=== PATIENT | female | born 1995 | race Caucasian/White ===

== ENCOUNTER → 2017-07-18 | Outpatient (CLI) | payer BC | END | disposition home or self-care (01) | LOC: LABWHC1 15:07 | PROVIDERS: ATTEND Obstetrics & Gynecology | DX: N91.2 Amenorrhea, unspecified (principal) | CPT/HCPCS: 36415; 84702 ==

== ENCOUNTER 2017-10-18 06:15 | Emergency (ER) | payer BC ==
[2017-10-18 06:26] VITALS: RESP 16; TEMP 98.4
--- NOTE | 2017-10-18 07:14 | ED ---
Chest Pain HPI - General Chief Complaint: Chest Pain Stated Complaint: Chest Pain Time Seen by Provider: 10/18/17 07:00 Source: patient, RN notes reviewed Mode of arrival: ambulatory Limitations: no limitations - History of Present Illness Initial Comments: 22-year-old female presents emergency Department chief complaint of chest discomfort palpitations. Patient states she has a history of this last 2 years. Patient states that it is happening more frequently and recently be secondary to increase stress and anxiety related to custody [place] on work. Patient states she's had a complete workup with a primary cardiology for her heart. She's had echo EKGs and Holter monitor. Patient had no acute finding told is not her heart. Disorders anxiety. She has taken from the Xanax in the past which is help. She was given Ativan that did not help. Denies any associated symptoms denies any shortness of breath no pleuritic chest pain. Patient denies any chance . Patient states she took a nap here prior to being seen and feels better. - Related Data Previous Rx's Medication Instructions Recorded LORazepam [Ativan] 1 mg PO HS PRN #30 tab 10/21/16 ALPRAZolam [Xanax] 0.5 mg PO BID PRN #14 tablet 10/18/17 Allergies Allergy/AdvReac Type Severity Reaction Status Date / Time No Known Allergies Allergy Verified 10/21/16 05:10 Review of Systems ROS Statement: Those systems with pertinent positive or pertinent negative responses have been documented in the HPI. ROS Other: All systems not noted in ROS Statement are negative. EKG Findings - EKG Comments: EKG Findings:: EKG performed at 6:39 sinus rhythm with a rate of 71 AR 108 QRS 90 QT/QTc 384/417 Past Medical History Additional Past Medical History / Comment(s): freqent uti's, angina History of Any Multi-Drug Resistant Organisms: None Reported Past Surgical History: Tonsillectomy Past Psychological History: Anxiety, Bipolar Smoking Status: Never smoker Past Alcohol Use History: Occasional Past Drug Use History: None Reported, Marijuana General Exam Limitations: no limitations General appearance: alert, in no apparent distress Head exam: Present: atraumatic, normocephalic, normal inspection Eye exam: Present: normal appearance, PERRL, EOMI. Absent: scleral icterus, conjunctival injection, periorbital swelling ENT exam: Present: normal exam, normal oropharynx, mucous membranes moist, TM's normal bilaterally, normal external ear exam Neck exam: Present: normal inspection, full ROM. Absent: tenderness, meningismus, lymphadenopathy Respiratory exam: Present: normal lung sounds bilaterally. Absent: respiratory distress, wheezes, rales, rhonchi, stridor Cardiovascular Exam: Present: regular rate, normal rhythm, normal heart sounds. Absent: systolic murmur, diastolic murmur, rubs, gallop, clicks GI/Abdominal exam: Present: soft, normal bowel sounds. Absent: distended, tenderness, guarding, rebound, rigid Course Vital Signs 10/18/17 10/18/17 06:22 06:44 Temperature 98.4 F Pulse Rate 72 Pulse Rate [ 67 Shower Room Attendant ] Respiratory 16 Rate Blood Pressure 120/67 O2 Sat by Pulse 99 Oximetry Chest Pain MDM - MDM 22-year-old female presented to the emergency Department chief complaint of chest pain, palpitations anxiety. Patient felt better prior to being seen after sleeping in the room. Patient has increased stress and anxiety issues. Patient be given short course he Xanax. She is to schedule appointment with her primary care physician and return for any worsening symptoms. Disposition Clinical Impression: Atypical chest pain, Stress, Anxiety Disposition: HOME SELF-CARE Condition: Stable Instructions: Chest Pain (ED) Additional Instructions: Please return to the Emergency Department if symptoms worsen or any other concerns. Prescriptions: ALPRAZolam [Xanax] 0.5 mg PO BID PRN #14 tablet PRN Reason: Anxiety Referrals: Cecil Antonio DO [Primary Care Provider] - 1-2 days Time of Disposition: 07:14
[2017-10-18 07:40] VITALS: BP 140/87; PULSE 75
== END 2017-10-18 07:39 | disposition home or self-care (01) ==
LOC: EC 06:15
DX: F41.9 Anxiety disorder, unspecified (principal); R07.89 Other chest pain; F43.9 Reaction to severe stress, unspecified
CPT/HCPCS: 93005; 99284

== ENCOUNTER → 2020-06-19 | Outpatient (CLI) | payer OTHER ==
[2020-06-19 17:11] LABS: HCT 37.3 % (34.0-46.0); HGB 13.4 gm/dL (11.4-16.0); MCHC 35.8 g/dL (31.0-37.0); MCV 89.4 fL (80.0-100.0); Mean Platelet Volume 8.3; Platelet Count 192 k/uL (150-450); RBC 4.17 m/uL (3.80-5.40); RDW 11.6 % (11.5-15.5); WBC 11.6 k/uL (3.8-10.6)
[2020-06-19 17:27] LABS: African American GFR (CKD) >90 (>60 ml/min/1.73 sqM); Glucose 109 mg/dL (74-99); Non-African American GFR(CKD) >90 (>60 ml/min/1.73 sqM)
[2020-06-20 04:44] LABS: Hepatitis B Surface Antigen Non-Reactive (Non-Reactive)
[2020-06-20 08:01] LABS: HIV 2 AB Non-Reactive (Non-Reactive); HIV AB P24 Non-Reactive (Non-Reactive); HIV P24 AG Non-Reactive (Non-Reactive)
--- NOTE | 2020-06-21 19:50 | US ---
EXAMINATION TYPE: US OB <= 14 wk twins DATE OF EXAM: 06/19/2020 COMPARISON: NONE CLINICAL HISTORY: 25-year-old female [id number] CONFIRM DATES. EXAM PERFORMED: Transabdominal (TA) FINDINGS: EXAM MEASUREMENTS: GESTATIONAL AGE / DATING Physician Established: (6 weeks/6 days) EDC: 02/06/2021 Dates by LMP: (6 weeks/6 days) EDC: 02/06/2021 Dates by First Scan: This is 1st scan Dates by Current Scan for Baby A: (6 weeks/5 days) EDC: 02/07/2021 Dates by Current Scan for Baby B: (6 weeks/6 days) EDC: 02/06/2021 MATERNAL ANATOMY Uterus: 10.3 x 4.2 x 6.3cm Right Ovary: 5.6 x 4.0 x 3.7cm with 4.7 x 3.2 x 3.1cm cyst. This cyst contains a mural based echogeni c material measuring 2.4 x 0.9 cm. Left Ovary: 2.5 x 1.5 x 1.4cm Post CDS / Adnexa: wnl Presence of free fluid: no Presence of corpus luteal cyst: not seen Presence of subchorionic bleed: no Presence of two separate gestational sacs: yes GESTATION / SURVEY TWIN A CRL: 0.8cm (6 wks/5 days) Yolk Sac (normal less than 6mm): 3.8mm Heart Rate: 132 bpm Rhythm: Normal IUP: Viable IUP TWIN B CRL: 0.8cm (6 wks/6 days) Yolk Sac (normal less than 6mm): 3.2mm Heart Rate: 144 bpm Rhythm: Normal IUP: Viable IUP Twin peak sign is demonstrated. Date of LMP: 05/02/2020 Beta HcG (if available): Not available at time of exam [employer] Sales[employer] notes: Viable twin IUP IMPRESSION: 1. Twin live intrauterine pregnancies with estimated gestational age of 6 weeks 6 days by LMP. Curren t ultrasound biometry is concordant (twin A at 6 weeks 5 days and twin B at 6 weeks 6 days). 2. 2 yolk sacs and twin peak sign suggests a diamnionic dichorionic twin gestation. 3. A large 4.7 cm cyst within the right ovary contains a 2.4 cm mural based nodule. Possible hemorrha gic cyst with retractile clot. Reassess in 6-8 weeks to ensure involution. 4. Complete survey recommended at 18-20 weeks.
[2020-06-22 05:13] LABS: Toxoplasma Antibody (IgG) <3.0 IU/mL (<7.2); Toxoplasma Antibody (IgM) 3.7 AU/mL (<8.0)
== END | disposition home or self-care (01) ==
LOC: RADUSWWP 15:41
PROVIDERS: ATTEND Obstetrics & Gynecology
DX: Z36.9 Encounter for antenatal screening, unspecified (principal); Z3A.01 Less than 8 weeks gestation of pregnancy; N83.201 Unspecified ovarian cyst, right side; Z34.81 Encounter for supervision of other normal pregnancy, first trimester
CPT/HCPCS: 76801; 76802; 82565; 82947; 85027; 86762; 86777; 86778; 86780; 86900; 86901; 87340; 87390

== ENCOUNTER 2020-07-18 12:25 | Emergency (ER) | payer OTHER ==
[2020-07-18] MEDS ORDERED: diphenhydrAMINE 50 MG/ML 1 ML VIAL IVP STA (12:37)
[2020-07-18] MEDS ORDERED: METOCLOPRAMIDE 5 MG/ML 2 ML VIAL IVP STA (12:37)
[2020-07-18] MEDS ORDERED: SODIUM CHLORIDE 0.9% 2,000 ML IV STA (12:37)
[2020-07-18 12:55] LABS: Basophils # (A) 0.1 k/uL (0-0.2); Basophils % (A) 1 %; Eosinophils # (A) 0.2 k/uL (0-0.7); Eosinophils % (A) 1 %; HCT 37.7 % (34.0-46.0); HGB 13.3 gm/dL (11.4-16.0); Lymphocytes # (A) 1.6 k/uL (1.0-4.8); Lymphocytes % (A) 12 %; MCH 31.2 pg (25.0-35.0); MCHC 35.3 g/dL (31.0-37.0); MCV 88.6 fL (80.0-100.0); Monocytes # (A) 0.4 k/uL (0-1.0); Monocytes % (A) 3 %; Neutrophils # (A) 11.1 k/uL (1.3-7.7); Neutrophils % (A) 83 %; Platelet Count 160 k/uL (150-450); RBC 4.25 m/uL (3.80-5.40); RDW 11.8 % (11.5-15.5); WBC 13.3 k/uL (3.8-10.6)
[2020-07-18 13:03] LABS: ALT 28 U/L (4-34); AST 33 U/L (14-36); African American GFR (CKD) >90 (>60 ml/min/1.73 sqM); Albumin 3.8 g/dL (3.5-5.0); Alkaline Phosphatase 48 U/L (38-126); Anion Gap 6 mmol/L; Blood Urea Nitrogen 6 mg/dL (7-17); Calcium 8.9 mg/dL (8.4-10.2); Carbon Dioxide 23 mmol/L (22-30); Chloride 104 mmol/L (98-107); Glucose 102 mg/dL (74-99); Lipase 33 U/L (23-300); Magnesium 1.8 mg/dL (1.6-2.3); Non-African American GFR(CKD) >90 (>60 ml/min/1.73 sqM); Sodium 133 mmol/L (137-145); Total Bilirubin 0.3 mg/dL (0.2-1.3); Total Protein 6.6 g/dL (6.3-8.2)
--- NOTE | 2020-07-18 13:16 | ED ---
Nausea/Vomiting/Diarrhea HPI - General Chief complaint: Nausea/Vomiting/Diarrhea Stated complaint: 11 wks - Vomiting Time Seen by Provider: 07/18/20 12:31 Source: patient, RN notes reviewed Mode of arrival: ambulatory Limitations: no limitations - History of Present Illness Initial comments: 25-year-old female presents emergency Department chief complaint of nausea and vomiting in . Patient states that she struggle with nausea vomiting and her first and she is 11 weeks with twin gestation. Patient states that she's been suffering with states that she feels dehydrated. Patient is on no medications currently. Patient's SHRUB PLANTER is Dr. Hendrickson. Denies any vaginal bleeding or vaginal discharge no significant abdominal pain. Patient denies any fevers chills cough congestion. - Related Data Previous Rx's Medication Instructions Recorded LORazepam [Ativan] 1 mg PO HS PRN #30 tab 10/21/16 ALPRAZolam [Xanax] 0.5 mg PO BID PRN #14 tablet 10/18/17 Allergies Allergy/AdvReac Type Severity Reaction Status Date / Time No Known Allergies Allergy Verified 07/18/20 12:26 Review of Systems ROS Statement: Those systems with pertinent positive or pertinent negative responses have been documented in the HPI. ROS Other: All systems not noted in ROS Statement are negative. Past Medical History Additional Past Medical History / Comment(s): freqent uti's, angina History of Any Multi-Drug Resistant Organisms: None Reported Past Surgical History: Tonsillectomy Past Psychological History: Anxiety, Bipolar Smoking Status: Never smoker Past Alcohol Use History: None Reported Past Drug Use History: Marijuana General Exam Limitations: no limitations General appearance: alert, in no apparent distress Head exam: Present: atraumatic, normocephalic, normal inspection Eye exam: Present: normal appearance, PERRL, EOMI. Absent: scleral icterus, conjunctival injection, periorbital swelling ENT exam: Present: normal exam, mucous membranes moist Neck exam: Present: normal inspection, full ROM. Absent: tenderness, meningismus, lymphadenopathy Respiratory exam: Present: normal lung sounds bilaterally. Absent: respiratory distress, wheezes, rales, rhonchi, stridor Cardiovascular Exam: Present: regular rate, normal rhythm, normal heart sounds. Absent: systolic murmur, diastolic murmur, rubs, gallop, clicks GI/Abdominal exam: Present: soft, normal bowel sounds. Absent: distended, tenderness, guarding, rebound, rigid Back exam: Absent: CVA tenderness (R), CVA tenderness (L) Course Vital Signs 07/18/20 12:26 Temperature 98 F Pulse Rate 82 Respiratory 18 Rate Blood Pressure 130/82 O2 Sat by Pulse 98 Oximetry - Reevaluation(s) Reevaluation #1: 07/18/20 13:38 patient updated on results patient feels improved at this time Medical Decision Making - Medical Decision Making 25-year-old presented for nausea vomiting patient was well hydrated, given antiemetics feels greatly improved. No major signs of dehydration left lites within normal limits. Patient has no abdominal complaints other than nausea. Patient discharged in stable condition with close follow-up with [employer]ANTER return parameters were discussed - Lab Data Result diagrams: 07/18/20 12:47 07/18/20 12:47 Lab Results 07/18/20 07/18/20 07/18/20 Range/Units 12:47 12:47 13:11 WBC 13.3 H (3.8-10.6) k/uL RBC 4.25 (3.80-5.40) m/uL Hgb 13.3 (11.4-16.0) gm/dL Hct 37.7 (34.0-46.0) % MCV 88.6 (80.0-100.0) fL MCH 31.2 (25.0-35.0) pg MCHC 35.3 (31.0-37.0) g/dL RDW 11.8 (11.5-15.5) % Plt Count 160 (150-450) k/uL MPV 8.0 Neutrophils % 83 % Lymphocytes % 12 % Monocytes % 3 % Eosinophils % 1 % Basophils % 1 % Neutrophils # 11.1 H (1.3-7.7) k/uL Lymphocytes # 1.6 (1.0-4.8) k/uL Monocytes # 0.4 (0-1.0) k/uL Eosinophils # 0.2 (0-0.7) k/uL Basophils # 0.1 (0-0.2) k/uL Sodium 133 L (137-145) mmol/L Potassium 4.0 (3.5-5.1) mmol/L Chloride 104 (98-107) mmol/L Carbon Dioxide 23 (22-30) mmol/L Anion Gap 6 mmol/L BUN 6 L (7-17) mg/dL Creatinine 0.47 L (0.52-1.04) mg/dL Est GFR (CKD-EPI)AfAm >90 (>60 ml/min/1.73 sqM) Est GFR (CKD-EPI)NonAf >90 (>60 ml/min/1.73 sqM) Glucose 102 H (74-99) mg/dL Calcium 8.9 (8.4-10.2) mg/dL Magnesium 1.8 (1.6-2.3) mg/dL Total Bilirubin 0.3 (0.2-1.3) mg/dL AST 33 (14-36) U/L ALT 28 (4-34) U/L Alkaline Phosphatase 48 (38-126) U/L Total Protein 6.6 (6.3-8.2) g/dL Albumin 3.8 (3.5-5.0) g/dL Lipase 33 (23-300) U/L Urine Color Yellow Urine Appearance Cloudy H (Clear) Urine pH 7.0 (5.0-8.0) Ur Specific Yeso 1.022 (1.001-1.035) Urine Protein Negative (Negative) Urine Glucose (UA) Negative (Negative) Urine Ketones Negative (Negative) Urine Blood Negative (Negative) Urine Nitrite Negative (Negative) Urine Bilirubin Negative (Negative) Urine Urobilinogen <2.0 (<2.0) mg/dL Ur Leukocyte Esterase Negative (Negative) Urine RBC 2 (0-5) /hpf Urine WBC 4 (0-5) /hpf Ur Squamous Epith Cells 8 H (0-4) /hpf Urine Mucus Rare H (None) /hpf Disposition Clinical Impression: Nausea/vomiting in Disposition: HOME SELF-CARE Condition: Stable Instructions (If sedation given, give patient instructions): Nausea and Vomiting in (ED) Additional Instructions: Please return to the Emergency Department if symptoms worsen or any other concerns. Is patient prescribed a controlled substance at d/c from ED?: No Referrals: Cecil Antonio DO [Primary Care Provider] - 1-2 days Time of Disposition: 13:40
[2020-07-18 13:31] LABS: Appearance,Urine Cloudy (Clear); Bilirubin,Urine Negative (Negative); Blood,Urine Negative (Negative); Color,Urine Yellow; Glucose,Urine (UA) Negative (Negative); Ketones,Urine Negative (Negative); Leukocyte Esterase,Urine Negative (Negative); Mucus,Urine Rare /hpf; Nitrite,Urine Negative (Negative); Protein,Urine Negative (Negative); RBC,Urine 2 /hpf (0-5); Specific Gravity,Urine 1.022 (1.001-1.035); Squamous Epithelial Cell,Urine 8 /hpf (0-4); Urobilinogen,Urine <2.0 mg/dL (<2.0); WBC,Urine 4 /hpf (0-5)
[2020-07-18 13:57] VITALS: BP 120/60; PULSE 78; RESP 16; TEMP 98.3
== END 2020-07-18 14:10 | disposition home or self-care (01) ==
LOC: EC 12:25
DX: O21.0 Mild hyperemesis gravidarum (principal); Z3A.11 11 weeks gestation of pregnancy
CPT/HCPCS: 36415; 80053; 83690; 83735; 85025; 81001; 99284; 96374; 96375; 96361; J1200; J2765

== ENCOUNTER 2020-11-30 22:00 | Outpatient (CLI) | payer OTHER ==
[2020-11-30 22:35] LABS: Appearance,Urine Turbid (Clear); Bacteria,Urine Moderate /hpf; Bilirubin,Urine Negative (Negative); Blood,Urine Moderate (Negative); Calcium Oxalate Crystals,Urine Occasional /hpf; Color,Urine Yellow; Glucose,Urine (UA) Negative (Negative); Ketones,Urine Negative (Negative); Leukocyte Esterase,Urine Large (Negative); Mucus,Urine Few /hpf; Nitrite,Urine Positive (Negative); Protein,Urine 2+ (Negative); RBC,Urine 30 /hpf (0-5); Squamous Epithelial Cell,Urine 26 /hpf (0-4); Urobilinogen,Urine <2.0 mg/dL (<2.0); WBC,Urine >182 /hpf (0-5)
[2020-11-30 23:22] VITALS: BP 126/64; PULSE 93; RESP 16; TEMP 98.9
--- NOTE | 2020-12-17 11:26 | P.MSEPDOC ---
Presenting Problems - Arrival Data Date of Arrival on Unit: 11/30/20 Time of Arrival on Unit: 22:00 Mode of Transport: Ambulatory - Complaint OB-Reason for Admission/Chief Complaint: Elevated Blood Pressure, Signs/Symptoms UTI Comment: pt had checked blood pressure at home and thought it was elevated Medical History - Information : 2 Para: 1 Term: 1 : 0 Abortions: Spontaneous or Elective: 0 Number of Living Children: 1 - Gestational Age Gestational Age by RALPH (wks/days): 30 Weeks and 2 Days Review of Systems - Review of Systems Constitutional: No problems Breast: No problems ENT: No problems Cardiovascular: No problems Respiratory: No problems Gastrointestinal: No problems Genitourinary: Urgency, Increased frequency Musculoskeletal: No problems Neurological: No problems Skin: No problems Vital Signs - Temperature Temperature: 98.9 F Temperature Source: Axillary - Pulse Right Sitting Pulse Rate: 93 - Respirations Respiratory Rate: 16 Oxygen Delivery Method: Room Air O2 Sat by Pulse Oximetry: 97 - Blood Pressure Right Arm Sitting Blood Pressure: 126/64 Blood Pressure Mean: 84 Blood Pressure Source: Automatic Cuff Medical Screen Scoring (Pre) - Cervical Exam Dilation: Exam Deferred Effacement: Exam Deferred Membranes: Intact - Uterine Contractions Frequency: > 5 minutes apart = 1 Duration: N/A Intensity: N/A - Maternal Vital Signs Maternal Temperature: N/A Maternal Blood Pressure: N/A Signs of Preeclampsia: N/A Maternal Respirations: N/A - Maternal Trauma Maternal Trauma: N/A - Assessment - Baby A Baseline FHR: 125 Heart Rate - NICHD Category: Category I (Normal) = 0 NST: Reactive - Assessment - Baby B Baseline FHR: 135 Heart Rate - NICHD Category: Category I (Normal) = 0 NST: Reactive - Total Score - Baby A Total Score - Baby A: 1 - Total Score - Baby B Total Score - Baby B: 1 - Total Score - Baby C Total Score - Baby C: 1 - Level of Risk - Baby A Level of Risk - Baby A: Low (0-5) - Level of Risk - Baby B Level of Risk - Baby B: Low (0-5) - Level of Risk - Baby C Level of Risk - Baby C: Low (0-5) Physician Notification (Pre) - Physician Notified Physician Notified Date: 11/30/20 Physician Notified Time: 22:44 New Order Received: Yes (D/C home) - Notification Comment Comment: Pt is to call the office first thing in the am to have an antibiotic e- scribed to her pharmacy. Disposition - Disposition OB Disposition: Discharge to home, Written follow up instructions reviewed Discharge Date: 11/30/20 Discharge Time: 23:00 I agree with the RN Medical Screening Exam: Yes Case reviewed; plan agreed upon as documented in EMR&OBIX.: Yes Diagnosis: OTHER SPECIFIED COMPLICATIONS OF LABOR AND DELIVERY
== END 2020-11-30 23:00 | disposition home or self-care (01) ==
LOC: FBPOP 22:00
PROVIDERS: ATTEND Obstetrics & Gynecology
DX: O75.89 Other specified complications of labor and delivery (principal); R03.0 Elevated blood-pressure reading, without diagnosis of hypertension; Z3A.30 30 weeks gestation of pregnancy
CPT/HCPCS: 59025; 81001; 87086; 87077; 87186; G0463; 99213

== ENCOUNTER 2020-12-23 13:30 | Outpatient (CLI) | payer OTHER ==
[2020-12-23 15:02] VITALS: BP 117/72; PULSE 103; RESP 16; TEMP 98.2
--- NOTE | 2020-12-24 07:14 | P.MSEPDOC ---
Presenting Problems - Arrival Data Date of Arrival on Unit: 12/23/20 Time of Arrival on Unit: 13:31 Mode of Transport: Ambulatory - Complaint OB-Reason for Admission/Chief Complaint: NST Comment: pt here for NST for twin gestation Medical History - Information : 2 Para: 1 Term: 1 : 0 Abortions: Spontaneous or Elective: 0 Number of Living Children: 1 - Gestational Age Gestational Age by RALPH (wks/days): 33 Weeks and 4 Days - History Complications: Multiple Review of Systems - Review of Systems Constitutional: No problems Breast: No problems ENT: No problems Cardiovascular: No problems Respiratory: No problems Gastrointestinal: No problems Genitourinary: No problems Musculoskeletal: No problems Neurological: No problems Skin: No problems Vital Signs - Temperature Temperature: 98.2 F Temperature Source: Oral - Pulse Right Brachial Pulse Rate: 103 Pulse Assessment Method: Automatic Cuff - Respirations Respiratory Rate: 16 Oxygen Delivery Method: Room Air O2 Sat by Pulse Oximetry: 98 - Blood Pressure Right Arm Blood Pressure: 117/72 Blood Pressure Mean: 87 Blood Pressure Source: Automatic Cuff Medical Screen Scoring - Assessment - Baby A Baseline FHR: 130 Heart Rate - NICHD Category: Category I (Normal) - Assessment - Baby B Baseline FHR: 130 Heart Rate - NICHD Category: Category I (Normal) Physician Notification - Physician Notified Physician Notified Date: 12/23/20 Physician Notified Time: 14:43 Physician: dr beatty New Order Received: Yes - Notification Comment Comment: reactive NST. May discharge to home with instructions Maternal Triage Index - Maternal Triage Index Presenting for scheduled procedure w/no complaint: Yes - Scheduled/Requesting Priority 5 Scheduled/Requesting Priority 5: Yes Criteria Met for Priority 5: pt scheduled for a NST for twin gestation Disposition - Disposition OB Disposition: Discharge to home Discharge Date: 12/23/20 Discharge Time: 14:43 I agree with the RN Medical Screening Exam: Yes Case reviewed; plan agreed upon as documented in EMR&OBIX.: Yes Diagnosis: TWIN , DICHORIONIC/DIAMNIOTIC, THIRD TRIMESTER
== END 2020-12-23 14:43 | disposition home or self-care (01) ==
LOC: FBPOP 13:30
PROVIDERS: ATTEND Obstetrics & Gynecology
DX: O30.043 Twin pregnancy, dichorionic/diamniotic, third trimester (principal); Z3A.33 33 weeks gestation of pregnancy
CPT/HCPCS: 59025; G0463; 99213

== ENCOUNTER → 2021-01-01 | Outpatient (CLI) | payer OTHER ==
--- NOTE | 2021-01-01 11:26 | US ---
EXAMINATION TYPE: US OB >= 14 wk twins DATE OF EXAM: 01/01/2021 COMPARISON: 06/19/2020 CLINICAL HISTORY: O30.93 Multiple gestation. Twin GESTATIONAL AGE / DATING Physician Established: (34 weeks/6 days) EDC: 02/06/2021 Dates by LMP: (34 weeks/6 days) EDC: 02/06/2021 Dates by First Scan: (34 weeks/6 days) EDC: 02/06/2021 Dates by Current Scan for Baby A: (36 weeks/1 days) EDC: 01/28/2021 Dates by Current Scan for Baby B: (35 weeks/0 days) EDC: 02/05/2021 GENERAL TWIN SURVEY TWIN A LOCATION in regards to maternal abd: Maternal right TWIN B LOCATION in regards to maternal abd: Maternal left MEMBRANE SEEN: yes- limited visualization CERVICAL LENGTH (transabdominal; norm > 3.0cm): 2.7 cm TWIN A: SURVEY/BIOMETRY PLACENTA: Anterior PREVIA: No previa MVP NEIL:? 4.2 cm?Normal PRESENTATION: Vertex BPD: 9.1 cm 36 weeks / 6 days HC: 33.2 cm 38 weeks / 0 days AC: 33.0 cm 37 weeks / 0 days FL: 6.2 cm 37 weeks / 5 days ESTIMATED WEIGHT IN GRAMS: 2773 grams ESTIMATED WEIGHT IN LBS/OZS: 6 lbs. 2 oz. WEIGHT PERCENTAGE BASED ON ESTABLISHED DATES: 74% HC/AC: 1.0 Normal FL/AC: 19% Abnormal HEART RATE: 146 bpm RHYTHM: Normal TWIN B: SURVEY/BIOMETRY PRESENTATION: Breech BPD: 8.5 cm 34 weeks / 1 days HC: 32.4 cm 36 weeks / 5 days AC: 32.3 cm 36 weeks / 2 days FL: 6.4 cm 32 weeks / 6 days ESTIMATED WEIGHT IN GRAMS: 2606 grams ESTIMATED WEIGHT IN LBS/OZS: 5 lbs. 12 oz. WEIGHT PERCENTAGE BASED ON ESTABLISHED DATES: 55% HC/AC: 1.0 Normal FL/AC: 20% Normal HEART RATE: 139 bpm RHYTHM: Normal Twin live IUP with Baby A measuring 36 weeks 1 day and Baby B measuring 35 weeks 0 days. Shortened c ervix visualized = 2.7 cm. This is not an anatomic survey. IMPRESSION: Twin live IUP with Baby A measuring 36 weeks 1 day and Baby B measuring 35 weeks 0 days. Shortened c ervix visualized = 2.7 cm.
== END | disposition home or self-care (01) ==
LOC: RADUSWWP 09:04
PROVIDERS: ATTEND Obstetrics & Gynecology
DX: O30.93 Multiple gestation, unspecified, third trimester (principal); O30.003 Twin pregnancy, unspecified number of placenta and unspecified number of amniotic sacs, third trimester; Z3A.36 36 weeks gestation of pregnancy
CPT/HCPCS: 76805; 76810

== ENCOUNTER 2021-01-04 10:57 | Outpatient (CLI) | payer OTHER ==
[2021-01-04 11:52] LABS: Basophils % (A) 0 %; Eosinophils # (A) 0.1 k/uL (0-0.7); Eosinophils % (A) 1 %; Lymphocytes # (A) 1.6 k/uL (1.0-4.8); Lymphocytes % (A) 15 %; MCH 28.9 pg (25.0-35.0); MCHC 34.4 g/dL (31.0-37.0); MCV 84.1 fL (80.0-100.0); Mean Platelet Volume 11.7; Monocytes # (A) 0.4 k/uL (0-1.0); Monocytes % (A) 4 %; Neutrophils # (A) 8.4 k/uL (1.3-7.7); Neutrophils % (A) 79 %; Platelet Count 129 k/uL (150-450); RBC 3.45 m/uL (3.80-5.40); RDW 13.9 % (11.5-15.5); WBC 10.6 k/uL (3.8-10.6)
--- NOTE | 2021-01-04 12:00 | US ---
EXAMINATION TYPE: US OB limited DATE OF EXAM: 01/04/2021 COMPARISON: NONE CLINICAL HISTORY: confirm NEIL. NEIL twins EXAM PERFORMED: Amniotic fluid index GESTATIONAL AGE / DATING Physician Established: (35 weeks/2 days) EDC: 02/06/2021 No growth performed on today?s study per ordering physician SURVEY NEIL: Baby A 8.7 cm NEIL: Baby B 8.8 cm HEART RATE: Baby A 160 bpm Baby B 149 bpm This is not an anatomic survey. IMPRESSION: Single live twin with amniotic fluid indices, 8.7 cm and 8.8 cm.
[2021-01-04 12:27] VITALS: BP 128/62; PULSE 96; RESP 16; TEMP 97.2
[2021-01-04 12:47] LABS: ALT 15 U/L (4-34); AST 24 U/L (14-36); African American GFR (CKD) >90 (>60 ml/min/1.73 sqM); Alkaline Phosphatase 186 U/L (38-126); Anion Gap 8 mmol/L; Blood Urea Nitrogen 6 mg/dL (7-17); Calcium 8.5 mg/dL (8.4-10.2); Carbon Dioxide 20 mmol/L (22-30); Chloride 108 mmol/L (98-107); Glucose 163 mg/dL (74-99); Non-African American GFR(CKD) >90 (>60 ml/min/1.73 sqM); Potassium 3.8 mmol/L (3.5-5.1); Sodium 136 mmol/L (137-145); Total Bilirubin 0.3 mg/dL (0.2-1.3); Total Protein 5.8 g/dL (6.3-8.2)
--- NOTE | 2021-01-05 06:37 | P.MSEPDOC ---
Presenting Problems - Arrival Data Date of Arrival on Unit: 01/04/21 Time of Arrival on Unit: 11:11 Mode of Transport: Portable - Complaint OB-Reason for Admission/Chief Complaint: Other Comment: from office Medical History - Information : 2 Para: 1 Term: 1 : 0 Abortions: Spontaneous or Elective: 0 Number of Living Children: 1 - Gestational Age Gestational Age by RALPH (wks/days): 35 Weeks and 2 Days - History Comment: twins Review of Systems - Review of Systems Constitutional: No problems Breast: No problems ENT: No problems Cardiovascular: No problems Respiratory: No problems Gastrointestinal: No problems Genitourinary: No problems Musculoskeletal: No problems Neurological: No problems Skin: No problems Comment: sent from office for u/s neil and lab work, nst Vital Signs - Temperature Temperature: 97.2 F Temperature Source: Oral - Pulse Right Radial Pulse Rate: 96 Pulse Assessment Method: Automatic Cuff - Respirations Respiratory Rate: 16 Oxygen Delivery Method: Room Air O2 Sat by Pulse Oximetry: 99 - Blood Pressure Right Arm Blood Pressure: 128/62 Blood Pressure Mean: 84 Blood Pressure Source: Automatic Cuff Medical Screen Scoring - Uterine Contractions Intensity: Mild Resting: Soft to palpation - Assessment - Baby A Baseline FHR: 150 Heart Rate - NICHD Category: Category I (Normal) - Assessment - Baby B Baseline FHR: 140 Heart Rate - NICHD Category: Category I (Normal) NST: Reactive Physician Notification - Physician Notified Physician Notified Date: 01/04/21 Physician Notified Time: 12:30 Physician: Asad Hendrickson New Order Received: Yes (home with instructions and follow up for nst in office ) Maternal Triage Index - Maternal Triage Index Presenting for scheduled procedure w/no complaint: Yes - Scheduled/Requesting Priority 5 Scheduled/Requesting Priority 5: Yes Criteria Met for Priority 5: sent from office with orders. u/s for neil. twins 35 2/7 weeks. lab work and nst. Disposition - Disposition OB Disposition: Discharge to home, Written follow up instructions reviewed Discharge Date: 01/04/21 Discharge Time: 13:00 I agree with the RN Medical Screening Exam: Yes Case reviewed; plan agreed upon as documented in EMR&OBIX.: Yes Diagnosis: TWIN , DICHORIONIC/DIAMNIOTIC, THIRD TRIMESTER (Patient is presenting for nonstress test and amniotic fluid index. Patient had a normal growth ultrasound last Monday however radiology Department did not comment on the amniotic fluid index and there was some discrepancy to what it actually was. Ultrasound ordered today shows normal NEIL on twin 1 and 2. Nonstress test is reactive. Patient is asked to return on for repeat nonstress testing.)
== END 2021-01-04 13:00 | disposition home or self-care (01) ==
LOC: FBPOP 10:57
PROVIDERS: ATTEND Obstetrics & Gynecology
DX: O30.043 Twin pregnancy, dichorionic/diamniotic, third trimester (principal); Z3A.35 35 weeks gestation of pregnancy
CPT/HCPCS: 82239; 80053; 85025; 76815; G0463; 99213

== ENCOUNTER 2021-01-12 | Inpatient (IN) | payer OTHER | END 2021-01-15 13:15 | disposition home or self-care (01) | DRG 783 | PROVIDERS: ADMIT Obstetrics & Gynecology | PROC: 10D00Z1 Extraction of Products of Conception, Low, Open Approach (ICD-10-PCS; principal; 2021-01-13) | PROC: 0UB70ZZ Excision of Bilateral Fallopian Tubes, Open Approach (ICD-10-PCS; 2021-01-13) | DX: O34.211 Maternal care for low transverse scar from previous cesarean delivery (principal); K83.1 Obstruction of bile duct; O26.62 Liver and biliary tract disorders in childbirth; O30.003 Twin pregnancy, unspecified number of placenta and unspecified number of amniotic sacs, third trimester; O77.0 Labor and delivery complicated by meconium in amniotic fluid; Z37.2 Twins, both liveborn; Z3A.37 37 weeks gestation of pregnancy; Z30.2 Encounter for sterilization | CPT/HCPCS: 80076; 85025; 86850; 86900; 86901; 88302; 88307 ==

== ENCOUNTER 2021-05-22 18:26 | Emergency (ER) | payer OTHER ==
[2021-05-22 18:31] VITALS: BP 125/81; PULSE 90; RESP 20; TEMP 100.2
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
--- NOTE | 2021-05-22 19:49 | XR ---
EXAMINATION TYPE: XR ribs RT w pa chest xray DATE OF EXAM: 05/22/2021 COMPARISON: NONE HISTORY: Rib pain TECHNIQUE: 5 views FINDINGS: Heart and mediastinum are normal. Lungs are clear. Diaphragm is normal. There is no evidenc e of pleural effusion or pneumothorax. IMPRESSION: Normal chest. Normal right ribs.
[2021-05-22] MEDS ORDERED: ACETAMINOPHEN TAB 325 MG TAB PO STA (19:54)
[2021-05-22] MEDS ORDERED: IBUPROFEN 600 MG TAB PO STA (19:54)
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
== END 2021-05-22 20:18 | disposition home or self-care (01) ==
LOC: EC 18:26
DX: S20.211A Contusion of right front wall of thorax, initial encounter (principal); S06.0X0A Concussion without loss of consciousness, initial encounter; F41.9 Anxiety disorder, unspecified; F32.9 Major depressive disorder, single episode, unspecified; Z87.440 Personal history of urinary (tract) infections; Z90.89 Acquired absence of other organs; Y04.2XXA Assault by strike against or bumped into by another person, initial encounter
CPT/HCPCS: 70450; 99284

== ENCOUNTER 2023-04-26 09:06 | Day surgery (SDC) | payer OTHER ==
[~2023-04-26 09:06] MED LIST: ACETAMINOPHEN TAB 500 MG TAB PO PRN; HEPARIN SODIUM,PORCINE/PF 5,000 UNIT/0.5 ML SYRINGE SQ PRN; LIDOCAINE 1% (10MG/ML) FOR IV START INTRADERMA PRN
[2023-04-26 09:57] LABS: Glucose,Whole Blood 97 mg/dL (70-110)
[2023-04-26] MEDS: LACTATED RINGERS 1,000 ML IV SCH ×2 (09:57→10:15)
[2023-04-26] MEDS: ONDANSETRON 4 MG/2 ML VIAL IVP ONE (10:01)
[2023-04-26] MEDS ORDERED: DEXAMETHASONE SOD PHOSPHATE 4 MG/ML 1 ML VIAL IVP ONE (10:01)
[2023-04-26] MEDS ORDERED: MIDAZOLAM 2 MG/2 ML VIAL IVP ONE (10:12)
[2023-04-26] MEDS ORDERED: fentaNYL (PF) 50 MCG/ML 2 ML AMP IVP ONE (10:12)
[2023-04-26] MEDS ORDERED: LIDOCAINE 0.5%-EPI 1:200,000 50 ML VIAL SQ ONE (10:18)
[2023-04-26] MEDS ORDERED: ROCURONIUM 10 MG/ML (5 ML VIAL) IV ONE (10:19)
[2023-04-26] MEDS ORDERED: MIDAZOLAM 2 MG/2 ML VIAL ONE (10:19)
[2023-04-26] MEDS ORDERED: NEOSTIGMINE 1 MG/ML 10 ML VIAL ONE (10:19)
[2023-04-26] MEDS ORDERED: fentaNYL (PF) 50 MCG/ML 2 ML AMP ONE (10:19)
[2023-04-26] MEDS ORDERED: GLYCOPYRROLATE 0.2 MG/ML 2 ML VIAL ONE (10:19)
[2023-04-26] MEDS ORDERED: PROPOFOL 10 MG/ML 20 ML VIAL IV ONE (10:19)
[2023-04-26] MEDS ORDERED: LIDOCAINE 1% INJ 10MG/ML (20 ML MDV) ONE (10:19)
[2023-04-26] MEDS ORDERED: KETOROLAC 15 MG/ML 1 ML VIAL ONE (10:19)
[2023-04-26] MEDS ORDERED: ROPIVACAINE 5 MG/ML 30 ML VIAL ONE (10:19)
[2023-04-26] MEDS ORDERED: SUCCINYLCHOLINE CHLORIDE 200 MG/10 ML VIAL IV ONE (10:19)
[2023-04-26] MEDS ORDERED: SODIUM CHLORIDE 0.9% (PF) 10 ML VIAL ONE (10:19)
--- NOTE | 2023-04-26 11:02 | P.OP ---
Date of Procedure: 04/26/23 Preoperative Diagnosis: Incisional hernia Postoperative Diagnosis: Incisional hernia Procedure(s) Performed: Open repair of incisional hernia Anesthesia: NILESH Surgeon: Viral Dunn Estimated Blood Loss (ml): 5 Pathology: other (Incisional hernia mass) Condition: stable Disposition: PACU Description of Procedure: The patient's placed on the operating table in the supine position. She received general endotracheal tube anesthesia. Her abdomen was prepped and draped usual fashion. Patient had a 3 cm mass on the left side of her Pfannenstiel incision. The skin was incised over the mass. Using blunt and sharp dissection with cautery the mass was excised. The mass appeared to have the appearance of a small incisional hernia. There was a small fascial opening. The specimen sent to pathology. There is no obvious appearance of an endometrioma. The fascia was then closed 0 Ethibond suture. The skin was closed interrupted 3-0 Monocryl suture. Dermabond was applied. Patient top she will was sent to recovery room in stable condition.
[2023-04-26] MEDS: HYDROmorphone 0.5 MG/0.5 ML SYRINGE IVP PRN ×2 (11:17→11:24)
[2023-04-26 11:18] VITALS: TEMP 99
[2023-04-26] MEDS ORDERED: LACTATED RINGERS 1,000 ML IV ONE (11:29)
[2023-04-26 12:32] VITALS: RESP 16
--- NOTE | 2023-04-26 12:48 | P.ANPRN ---
Procedure Note - Anesthesia - Nerve Block Performed Bilateral Erector Spinae Single Time Out Performed: Yes (1011) Date of Procedure: 04/26/23 Procedure Start Time: 10:12 Procedure Stop Time: 10:16 Location of Patient: PreOp Indication: Acute Post-Operative Pain, Requested by Surgeon Specifically requested for management of pain by DrJosephine: Viral Dunn Sedation Type: Sedate with meaningful contact maintained Preparation: Sterile Prep Position: Prone Catheter: None Needle Types: Pajunk Needle Gauge: 21 Ultrasound used to visualize needle placement: Yes Ultrasound used to observe medication spread: Yes Injectate: 0.5% Ropivacaine (see comment for volume) (15cc + 5cc nacl pf each side) Blood Aspirated: No Pain Paresthesia on Injection Noted: No Resistance on Injection: Normal Image Stored and Saved: Yes Events: Uneventful and Well Tolerated
[2023-04-26 13:08] VITALS: BP 122/77; PULSE 70
== END 2023-04-26 13:14 | disposition home or self-care (01) ==
LOC: OR 09:06
PROVIDERS: ATTEND Surgery
DX: K43.2 Incisional hernia without obstruction or gangrene (principal); G89.18 Other acute postprocedural pain; Z79.899 Other long term (current) drug therapy
CPT/HCPCS: 81025; 88302; 49593; 64999; J2250; J0330; J1100; J2710; J0690; J2405; J2001; J3010; J2795; J1885; J2704; J1170